=== PATIENT | male | born 1960 | race Caucasian/White ===

== ENCOUNTER 2024-10-19 20:25 | Emergency (ER) | payer MEDICARE, SELFPAY ==
[2024-10-19 20:38] VITALS: BP 176/82
[2024-10-19 21:10] VITALS: BP 141/78
[2024-10-19] MEDS: MAALOX 50 PO (21:23)
[2024-10-19 21:36] LABS: % Basophils 0.5 % (0-2); % Eosinophils 1.3 % (0-6); % Immature Granulocytes 0.8 % (0-0.5); % Lymphocytes 13.8 % (20.5-51.1); % Monocytes 5.1 % (1.7-9.3); % Neutrophils 78.5 % (42.2-75.2); Absolute Eosinophils 0.1 10^3/uL (0-0.7); Absolute Immature Granulocytes 0.1 10^3/uL (0-0.05); Absolute Lymphocytes 1.1 10^3/uL (1.2-3.4); Absolute Monocytes 0.4 10^3/uL (0.1-0.6); Absolute Neutrophils 6.1 10^3/uL (1.4-6.5); Hematocrit 39.2 % (39.0-52.0); Hemoglobin 13.8 g/dL (13.0-18.0); Mean Corp Hgb Conc. 35.2 g/dL (33.0-37.0); Mean Corpuscular Hgb 30.4 pg (27.0-31.0); Mean Corpuscular Volume 86.3 fL (80.0-94.0); Nucleated Red Blood Cells % 0 % (-); Platelet Count 256 10^3/uL (130-400); Red Blood Cell Count 4.54 10^6/uL (4.70-6.10); Red Cell Dist. Width 12.9 % (11.5-14.5); White Blood Cell Count 7.8 10^3/uL (4.8-10.8)
[2024-10-19 21:49] LABS: INR 0.99; PT 13.4 Sec (11.4-14.6)
[2024-10-19 22:00] VITALS: BP 118/66
[2024-10-19 22:00] LABS: ALT (SGPT) 21 U/L (0-50); AST (SGOT) 20 U/L (17-59); Albumin 4.2 g/dl (3.5-5.0); Alkaline Phosphatase 90 U/L (38-126); Blood Urea Nitrogen 20 mg/dl (9-20); Calcium 9.4 mg/dl (8.4-10.2); Carbon Dioxide 25 mmol/L (22-30); Chloride 110 mmol/L (98-107); Glucose 135 mg/dl (70-99); Lipase 47 U/L (23-300); Sodium 141 mmol/L (135-145); Total Bilirubin 0.8 mg/dl (0.2-1.3); Total Protein 7.1 g/dl (6.3-8.2); eGFR > 60.00
[2024-10-19 22:01] LABS: Troponin I < 0.012 ng/ml
[2024-10-19] MEDS: PROTONIX IV 40 MG IV (22:22)
[2024-10-19 23:00] VITALS: BP 147/75
--- NOTE | 2024-10-19 23:20 | ED.GENMED ---
History of Present Illness
<Dona Ramos NP - Last Filed: 10/20/24 18:30>
General
Chief Complaint: Chest Pain
Source: patient
Exam Limitations: none
Time Seen by Provider: 10/19/24 21:10
Nursing documentation reviewed up to this point in time: agreed with
History of Present Illness
History of Present Illness:
Patien to ED with complaint of left chest chest pressure. States he was at a [employer] party, ate hot dogs, cheesburger, some beans, water, and then developed symptoms. Belched a few times but did not notice any inprovement. No n/v/diaphoresis. No SOB
or cough. TO ED accompanied by spouse
Past History
<Dona Ramos NP - Last Filed: 10/20/24 18:30>
Past History
ED Past Medical History: CVA, HTN and Hypercholesterolemia
ED Past Surgical History: None
Social History
Living: with family
Review of Systems
<Dona Ramos NP - Last Filed: 10/20/24 18:30>
Review of Systems
Allergies reviewed?: Yes
All Other Systems: ROS reviewed and negative except as documented in HPI and ROS
Constitutional: Reports no symptoms
EENT: Reports no symptoms
Respiratory: Reports no symptoms
Cardiac: Reports chest pain (left chest pressure)
ABD/GI: Reports no symptoms
: Reports no symptoms
Musculoskeletal: Reports no symptoms
Skin: Reports no symptoms
Neurological: Reports no symptoms
Psychiatric: Reports no symptoms
Phy Exam
<Dona Ramos NP - Last Filed: 10/20/24 18:30>
General Physical Exam
General Presentation: well appearing and no apparent distress
General age: appears stated age
General Skin: warm and dry
General Habitus: normal
Cardiovascular Exam
Cardiovascular Exam: regular rate/rhythm and no edema
Pulmonary Exam
Pulmonary Exam: lungs clear and no respiratory distress
Gastrointestinal Exam
Gastrointestinal Exam: normal bowel sounds, non tender, soft, no organomegaly and non distended
Musculoskeletal Exam
Musculoskeletal Exam: full ROM and neuro vasc intact
Skin Exam
Skin Exam: normal color, warm/dry and no rash
Psychiatric Exam
Psychiatric Exam: normal mood/affect
Scores
<Dona Ramos NP - Last Filed: 10/20/24 18:30>
Heart Score for Chest Pain Patients
STEMI patient?: No
History: Slightly or Non-Suspicious
ECG: Normal
Age: >/= 65 years
Risk Factors: 1 or 2 Risk Factors
Troponin: </= Normal Limit
Heart Score for Chest Pain Patients: 3
Heart Score Risk: 2.5% MACE over next 6 weeks
Course
<Dona Ramos NP - Last Filed: 10/20/24 18:30>
Orders/Labs/Results
Orders:
Orders
10/19/24 20:26
ECG [Electrocardiogram (*1)] Urgent
Reason for Study: Chest Pain
EKG- Treatment ONCE
10/19/24 21:07
IV Insert/Care/Rem.- Treatment PRN
10/19/24 21:16
Mag Hydrox/Al Hydrox/Simeth [Maalox] 30 ml Phenobarb/Hyoscy/Atropine/Scop [] 10 ml Viscous Lidocaine 2% [Xylocaine Viscous Cup] 10 ml PO NOW
10/19/24 21:22
Mag Hydrox/Al Hydrox/Simeth [Maalox] 30 ml .ROUTE .STK-MED ONE
Phenobarb/Hyoscy/Atropine/Scop [] 10 ml .ROUTE .STK-MED ONE
Viscous Lidocaine 2% [Xylocaine Viscous Cup] 15 ml .ROUTE .STK-MED ONE
10/19/24 21:31
Complete Blood Count/With Diff Urgent
Comprehensive Metabolic Panel Urgent
Lipase Urgent
Prothrombin Time Urgent
Troponin I Urgent
10/19/24 22:14
Pantoprazole [Protonix IV] 40 mg IV NOW STA
10/19/24 23:34
CR Chest - 2 Views Urgent
Comment:
Reason For Exam: cp
10/19/24 23:53
Troponin I Urgent
Abnormal Lab Results
10/19/24
21:31
RBC 4.54 L 10^6/uL
(4.70-6.10)
Abs Immat Gran (auto) 0.1 H 10^3/uL
(0-0.05)
Absolute Lymphs (auto) 1.1 L 10^3/uL
(1.2-3.4)
Immature Gran % 0.8 H %
(0-0.5)
Neutrophils % 78.5 H %
(42.2-75.2)
Lymphocytes % 13.8 L %
(20.5-51.1)
Chloride 110 H mmol/L
(98-107)
Glucose 135 H mg/dl
(70-99)
10/19/24 21:31
10/19/24 21:31
Vital Signs
Initial and Last Documented VS:
Initial Vital Signs
Temp Pulse Resp BP Pulse Ox
98.4 F 74 18 176/82 100
10/19/24 20:38 10/19/24 20:38 10/19/24 20:38 10/19/24 20:38 10/19/24 20:38
Last Documented Vital Signs
Temp Pulse Resp BP Pulse Ox
98.4 F 62 15 113/70 96
10/19/24 20:38 10/20/24 01:15 10/20/24 01:15 10/20/24 01:00 10/20/24 01:00
<Dominik Donald, DO - Last Filed: 10/20/24 00:33>
Orders/Labs/Results
Orders:
Orders
10/19/24 20:26
ECG [Electrocardiogram (*1)] Urgent
Reason for Study: Chest Pain
EKG- Treatment ONCE
10/19/24 21:07
IV Insert/Care/Rem.- Treatment PRN
10/19/24 21:16
Mag Hydrox/Al Hydrox/Simeth [Maalox] 30 ml Phenobarb/Hyoscy/Atropine/Scop [] 10 ml Viscous Lidocaine 2% [Xylocaine Viscous Cup] 10 ml PO NOW
10/19/24 21:22
Mag Hydrox/Al Hydrox/Simeth [Maalox] 30 ml .ROUTE .STK-MED ONE
Phenobarb/Hyoscy/Atropine/Scop [] 10 ml .ROUTE .STK-MED ONE
Viscous Lidocaine 2% [Xylocaine Viscous Cup] 15 ml .ROUTE .STK-MED ONE
10/19/24 21:31
Complete Blood Count/With Diff Urgent
Comprehensive Metabolic Panel Urgent
Lipase Urgent
Prothrombin Time Urgent
Troponin I Urgent
10/19/24 22:14
Pantoprazole [Protonix IV] 40 mg IV NOW STA
10/19/24 23:34
CR Chest - 2 Views Urgent
Comment:
Reason For Exam: cp
10/19/24 23:53
Troponin I Urgent
Abnormal Lab Results
10/19/24
21:31
RBC 4.54 L 10^6/uL
(4.70-6.10)
Abs Immat Gran (auto) 0.1 H 10^3/uL
(0-0.05)
Absolute Lymphs (auto) 1.1 L 10^3/uL
(1.2-3.4)
Immature Gran % 0.8 H %
(0-0.5)
Neutrophils % 78.5 H %
(42.2-75.2)
Lymphocytes % 13.8 L %
(20.5-51.1)
Chloride 110 H mmol/L
(98-107)
Glucose 135 H mg/dl
(70-99)
10/19/24 21:31
10/19/24 21:31
Vital Signs
Initial and Last Documented VS:
Initial Vital Signs
Temp Pulse Resp BP Pulse Ox
98.4 F 74 18 176/82 100
10/19/24 20:38 10/19/24 20:38 10/19/24 20:38 10/19/24 20:38 10/19/24 20:38
Last Documented Vital Signs
Temp Pulse Resp BP Pulse Ox
98.4 F 62 15 113/70 96
10/19/24 20:38 10/20/24 01:15 10/20/24 01:15 10/20/24 01:00 10/20/24 01:00
<Dona Ramos NP - Last Filed: 10/20/24 18:30>
*Radiology
Radiology exam reviewed: radiology read reviewed
*Pulse Oximetry
SaO2: 98
Oxygen Mode of Delivery: Room air
Patient hypoxic: no
*EKG
Rate: normal
Rhythm: sinus
*Critical Care Note
Total Time (30-74mins, 75-104mins- exclusive of procedures): Not Applicable
<Dona Ramos NP - Last Filed: 10/20/24 18:30>
Update Note
Update Note:
Patient to ED with left chest pressure after eating at a [employer] party. No associated n/v/diaphoresis. VSS, EKG MSR. Initial troponin neg. Given a greengraber with some improvement. WIll recheck troponin at 3 hrs.
2nd troponin drawn, results pending. Case signed out to Dr. Donald.
ED Attending Note
<Dona Ramos [employer] - Last Filed: 10/20/24 18:30>
-
Portions of this chart may have been created with voice recognition software.� Occasional wrong word or��sound alike� substitutions may have occurred due to the inherent limitations of voice recognition software.
<Dominik Donald DO - Last Filed: 10/20/24 00:33>
ED Attending Note
Patient seen and examined by attending physician: Yes
ED Attending Note:
Into see the patient. He is resting comfortably. We discussed lab work and imaging studies. He will follow-up. He has no questions at this time. He is currently chest pain-free.
Discharge Plan
Departure
Patient Disposition: Home (Routine Discharge)
Date of Disposition: 10/20/24
Time of Disposition: 00:33
Patient with high blood pressure during this ER visit?: Yes
Discharge Problem:
Chest pain
Instructions: Chest Pain DCA Follow Up
Prescriptions:
No Action
oxycodone-acetaminophen 5 MG/325 MG tablet
1 - 2 tab PO Q4HPRN PRN (Reason: severe pain) Qty: 20 0RF
levofloxacin 500 MG tablet
500 mg PO DAILY Qty: 9 0RF
Referrals:
Dima Stokes DO [Family Provider, Internal Medicine]
Interventions
Interventions:
*Risk Screen - Suicide Last Done: 10/19/24 20:38
*General Assessment Last Done: 10/19/24 20:38
*Neglect/Abuse Screening Last Done: 10/19/24 20:38
*ED- Fall Risk Assessment Last Done: 10/19/24 22:21
*ED COVID-19 Vaccine History Last Done: 10/19/24 22:21
*Nursing Disposition Last Done: 10/20/24 01:23
ED- Cardiac Assessment Last Done: 10/19/24 22:21
Discharge Date and Time
Discharge Date/Time: 10/20/24 01:24
Print Language: DIVEHI
[2024-10-20] VITALS: BP 130/83
[2024-10-20 00:25] LABS: Troponin I < 0.012 ng/ml
[2024-10-20 01:00] VITALS: BP 113/70
== END 2024-10-20 01:24 | disposition home or self-care (01) ==
LOC: EMR 20:25
PROVIDERS: Nurse Practitioner; EMERGENCY PHYSICIAN Emergency Medicine; FAMILY PHYSICIAN Internal Medicine
DX: R07.89 Other chest pain (principal); E78.00 Pure hypercholesterolemia, unspecified; I10 Essential (primary) hypertension; Z86.73 Personal history of transient ischemic attack (TIA), and cerebral infarction without residual deficits
CPT/HCPCS: 99284; 96374; 71046; 80053; 83690; 84484; 85025; 85610; 93005